=== PATIENT | male | born 1985 | race Caucasian/White ===

== ENCOUNTER 2017-03-21 20:30 | Emergency (ER) | payer OTHER ==
[2017-03-22] MEDS: diazePAM 5 MG TAB PO (00:05)
[2017-03-22] MEDS: KETOROLAC 60 MG/2 ML VIAL (J1885) IM (00:08)
== END 2017-03-22 00:25 | disposition home or self-care (01) ==
LOC: M ED 03-22 00:25
DX: S16.1XXA Strain of muscle, fascia and tendon at neck level, initial encounter (principal); W19.XXXA Unspecified fall, initial encounter; Y92.89 Other specified places as the place of occurrence of the external cause; Y93.23 Activity, snow (alpine) (downhill) skiing, snowboarding, sledding, tobogganing and snow tubing; F90.9 Attention-deficit hyperactivity disorder, unspecified type; F43.10 Post-traumatic stress disorder, unspecified; F41.9 Anxiety disorder, unspecified; F33.9 Major depressive disorder, recurrent, unspecified; E78.00 Pure hypercholesterolemia, unspecified; Z79.899 Other long term (current) drug therapy
CPT/HCPCS: J1885

== ENCOUNTER 2017-09-14 23:46 | Emergency (ER) | payer OTHER | END 2017-09-15 04:15 | disposition left against medical advice (07) | LOC: M ED 23:46 | DX: Z53.29 Procedure and treatment not carried out because of patient's decision for other reasons (principal) ==